=== PATIENT | male | born 1990 | race American Indian/Alaskan Native ===

== ENCOUNTER 2016-10-14 11:36 | Emergency (ER) | payer SELFPAY ==
[2016-10-14 11:56] VITALS: BP 121/78
[2016-10-14] MEDS ORDERED: BENADRYL PO ONE (14:44)
[2016-10-14] MEDS ORDERED: NORCO 5/325 PO ONE (14:44)
--- NOTE | 2016-10-14 14:46 | Emergency Department Report ---
HPI - General Chief Complaint: Headache Time Seen by Provider: 10/14/16 14:40 - HPI HPI: [age] -[place] male with no past medical history that is homeless comes in today for headache that he feels heavy bodyaches headache is located on the top of his head sharp pain that is intermittent and it started on Saturday he went to work and he stated about 20 minutes his job would not send him home. He denies any nausea no vomiting no fever no chills he is up-to-date on his vaccines he does admit to mild sweating at night. He does report he has tried no medication secondary to being homeless no money. ED Past Medical Hx - Past Medical History Previous Medical History?: No - Surgical History Past Surgical History?: No - Social History Smoking Status: Never Smoker Substance Use Type: Other - Medications Home Medications: Home Medications Medication Instructions Recorded Confirmed Last Taken Type Butalb/Acetamin/Caff 50-325-40 1 tab PO Q8HR PRN #30 tablet 10/14/16 Unknown Rx [Fioricet] ED Review of Systems ROS: Stated complaint: HEADACHE Other details as noted in HPI Neurological: headache Physical Exam - Physical Exam Vital Signs: Vital Signs 10/14/16 11:53 Temperature 99.2 F Pulse Rate 99 H Respiratory 18 Rate Blood Pressure 121/78 O2 Sat by Pulse 100 Oximetry Physical Exam: GENERAL: Alert and oriented x3, no apparent distress, Normal Gait, atraumatic. HEAD: Head is normocephalic and a-traumatic. EYES: Extra ocular muscles are intact. Pupils are equal, round, and reactive to light and accommodation. EARS: symetrical, atraumatic, non tender, ear canal clear and moderate cerumen, tympanic membrance non inflamed. gross auditory nml bilaterally. NOSE: Nose symetrical, Nontender,Nares appeared normal. MOUTH:Mouth is well hydrated and without lesions. Tonsils nonerythematous or swollen, Uvula midline, Tongue not elevated. Mucous membranes are moist. Posterior pharynx clear, no exudate or lesions. Patent airways. NECK: Supple. Non edematous, No carotid bruits. No lymphadenopathy or thyromegaly. LUNGS: Symetrical with respiration, No wheezing, no rales or crackles, CTAB. HEART: S1, S2 present, mild tachycardia rate and rhythm without murmur, no rubs , no gallops. EXTREMITIES/MUSCULOSKELETAL: No cyanosis, clubbing, rash, lesions or edema. Full ROM bilaterally. UE/LE Pulses 2+ bilaterally. LE and UE 5+ strength bilaterally NEUROLOGIC: No focal Deficit, Cranial nerves II through XII are grossly intact. No loss of sensation, No facial droop, Negative rhomberg. Normal [id number], EOMI intact tongue protrusion deviation to the left or right is intact, cranial nerve XII is intact, no pronator drift, [id number] intact PSYCHIATRIC: Mood is congruent with affect, denies suicidal or homicidal ideations. SKIN: Warm and dry, No lesions, No ulceration or induration present ED Course Vital Signs 10/14/16 11:53 Temperature 99.2 F Pulse Rate 99 H Respiratory 18 Rate Blood Pressure 121/78 O2 Sat by Pulse 100 Oximetry - Reevaluation(s) Reevaluation #1: 10/14/16 15:42 Patient reports that he feels much better since having the medication. Ice patient on Abie 5/325, Benadryl 25 mg Zofran 8 mg po. Discussed the patient we would discharge him home. Patient verbalized understanding 10/14/16 15:43 ED Medical Decision Making - Medical Decision Making Patient has been evaluated by this provider fast track. Abie 5/325 ordered Benadryl 25 Zofran 8 mg by mouth ordered. Discussed with patient that we will most likely discharge him on Tylenol for headache control and referral to neurology and her primary care provider patient verbalized understanding Critical care attestation.: If time is entered above; I have spent that time in minutes in the direct care of this critically ill patient, excluding procedure time. ED Disposition Clinical Impression: Headache Qualifiers: Headache type: unspecified Headache chronicity pattern: acute headache Intractability: not intractable Qualified Code(s): R51 - Headache Disposition: DISCHARGED TO HOME OR SELFCARE Is pt being admited?: No Does the pt Need Aspirin: No Condition: Stable Instructions: Aspirin/Caffeine (By mouth) Additional Instructions: Take the Fioricet as prescribed. Encouraged her to drink plenty of water and follow up with the primary care provider if symptoms persist continues to get worse. Prescriptions: Butalb/Acetamin/Caff 50-325-40 [Fioricet] 1 tab PO Q8HR PRN #30 tablet PRN Reason: Headache Referrals: PRIMARY CARE, [Primary Care Provider] - 3-5 Days Forms: Work/School Release Form(ED)
[2016-10-14] MEDS ORDERED: ZOFRAN PO ONE ×2 (15:00→15:30)
== END 2016-10-14 15:57 | disposition home or self-care (01) ==
LOC: ED 11:36
DX: R51 Headache (principal)
CPT/HCPCS: 99282; Q0162